=== PATIENT | female | born 1940 | race Caucasian/White ===

== ENCOUNTER 2019-09-13 12:47 | Emergency (ER) | payer MEDICARE, OTHER ==
[~2019-09-13] VITALS: Ht 152.4 cm; Wt 68.0 kg
[~2019-09-13 12:47] MED LIST: ASPIRIN81 M1 PO; BIAXIN500 MG PO; COUMADIN4 M1 PO; Coumadin5 MG PO; FLEXERIL5 MG PO; HYDROCODONE BIT1 T11 PO; NEXIUM40 MG PO; NORVASC5 MG PO; PAROXETINE10 MG PO; PRAVACHOL20 MG PO; PREDNISONE20 MG PO; SYNTHROID0.075 MG PO; TOPCARE OMEPRAZ20 MG PO; TYLENOL PM EX-1 EACH PO; VICODIN 500 MG-1 TAB PO; XANAX0.25 MG PO; ZOLOFT50 MG PO
[2019-09-13 12:55] VITALS: BP 139/62
[2019-09-13 13:50] LABS: BASO % 0.3 % (0.0-1.0); HEMATOCRIT 46.2 % (37.0-47.0); LYMPH % 9.1 % (27.0-41.0); MEAN CELL VOLUME 88.5 fl (81.0-99.0); MEAN CORPUSCULAR HGB 28.2 pg (27.0-31.0); MEAN CORPUSCULAR HGB CONC 31.8 g/dl (33.0-37.0); MEAN PLATELET VOLUME 10.5 fl (9.6-12.3); MONO # 0.8 10*3/uL (0.1-1.0); MONO % 7.7 % (3.0-9.0); NEUT # 8.6 10*3/uL (2.3-7.9); NEUT % 82.5 % (47.0-73.0); PLATELET COUNT AUTOMATED 238 10*3/uL (130-400); RED BLOOD COUNT 5.22 10*6/uL (4.10-5.10); RED CELL DISTRI WIDTH 14.2 % (0-14.5); WHITE BLOOD COUNT 10.4 10*3/uL (4.8-10.8)
[2019-09-13 14:02] LABS: ACT PARTIAL THROMBO TIME 35.1 SECONDS (20.0-32.1); INTERNATIONAL NORM RATIO 1.4 (2.0-3.5)
[2019-09-13 14:05] LABS: ALBUMIN 3.6 gm/dl (3.1-4.5); ALKALINE PHOSPHATASE 101 U/L (45-117); BUN 13 mg/dl (7-24); CHLORIDE 102 mmol/L (98-107); CREATININE 0.91 mg/dL (0.55-1.02); LIPASE 49 U/L (73-393); POTASSIUM 3.3 mmol/L (3.5-5.1); SGOT/AST 43 IU/L (3-35); SGPT/ALT 33 U/L (12-78); SODIUM 135 mmol/L (136-145)
[2019-09-13 14:07] LABS: TROPONIN I < 0.015 ng/ml (<0.045)
== END 2019-09-13 20:45 | disposition home or self-care (01) ==
LOC: ED 12:47
PROVIDERS: Nurse Practitioner Family
DX: R68.89 Other general symptoms and signs (principal); Z79.01 Long term (current) use of anticoagulants; Z79.899 Other long term (current) drug therapy; Z90.710 Acquired absence of both cervix and uterus; Z90.49 Acquired absence of other specified parts of digestive tract